=== PATIENT | male | born 1965 | race Caucasian/White ===

== ENCOUNTER 2018-12-28 12:46 | Inpatient (IN) | payer BC ==
[~2018-12-28] VITALS: Ht 180.3 cm; Wt 117.9 kg
[2018-12-28 12:48] VITALS: BP 172/100
[2018-12-28 13:58] LABS: BASOPHILS 0.5 % (0.0-2.0); HEMATOCRIT 39.3 % (42.0-52.0); HEMOGLOBIN 13.4 gm/dL (14.0-18.0); LYMPHOCYTES 17.2 % (24.0-44.0); MCH 28.5 pg (26.0-34.0); MCHC 34.2 g/dL (28.0-37.0); MCV 83.5 fL (80.0-100.0); MONOCYTES 7.9 % (1.0-8.0); PLATELET COUNT 245 thou/uL (150-400); POLYS 74.4 % (36.0-66.0); RDW 13.3 % (10.5-14.5)
[2018-12-28 14:15] LABS: CALCIUM 9.3 mg/dL (8.5-10.1); CREATININE 1.1 mg/dL (0.7-1.3); MAGNESIUM 2.1 mg/dL (1.8-2.4); POTASSIUM 3.3 mmol/L (3.5-5.1)
[2018-12-28 15:33] LABS: URINE BILIRUBIN NEGATIVE (Negative); URINE BLOOD TRACE (Negative); URINE CLARITY CLEAR; URINE COLOR YELLOW; URINE GLUCOSE-RANDOM* 3+ (Negative); URINE KETONES NEGATIVE (Negative); URINE LEUKOCYTES-REFLEX NEGATIVE (Negative); URINE NITRITE-REFLEX NEGATIVE (Negative); URINE PROTEIN (DIPSTICK) NEGATIVE (Negative); URINE SPECIFIC GRAVITY <= 1.005 (1.005-1.035); URINE UROBILINOGEN 0.2 E.U./dl (0.2-1.0)
[2018-12-28 15:40] LABS: AMP/METHAMP Negative (Negative); BARBITURATES Negative (Negative); BENZODIAZEPINES Negative (Negative); COCAINE Negative (Negative); METHADONE Negative (Negative); OPIATES Negative (Negative); PCP Negative (Negative)
[2018-12-28 17:25] VITALS: BP 140/84
[2018-12-28 17:32] VITALS: BP 130/70
[2018-12-28 18:05] LABS: CHOLESTEROL 168 mg/dL (<200); HDL CHOLESTEROL 38 mg/dL (>40); LDL CHOLESTEROL 122 mg/dL (<100); SERUM ASSESSMENT Clear; TC:HDL 4.4 Ratio (Not establshd); TRIGLYCERIDE 44 mg/dL (<150); VLDL 9 mg/dL (<40)
[2018-12-28 18:38] VITALS: BP 167/89
--- NOTE | 2018-12-28 19:36 | NUR ---
PT ADMITTED FROM ER. REPORTS HE STARTED HAVING STIFFNESS IN HIS FINGER, HEAD PRESSURE, AND CHEST PAIN TODAY. STATES "GOD TOLD ME TO COME TO ER". REPORTS PAIN IS UNCHANGED SINCE TODAY ADMIT -11/09. HE STATES HE TAKES MEDICATIONS AT HOME BUT IS UNSURE WHAT MEDS BUT WILL HAVE HIS BRING HIS MEDICATIONS BOTTLES HERE LATER TONIGHT. CARE PLAN INITIATED. REPORT GIVEN TO BOARD WINDER RN.
[2018-12-28 20:15] VITALS: BP 170/81
[2018-12-28 20:28] VITALS: BP 142/72
[2018-12-29 00:06] VITALS: BP 156/88
--- NOTE | 2018-12-29 03:55 | NUR ---
ASSUMED PT'S CARE AT 1930; PT. SITTING ON CHAIR; C/O CP; 11/09; REFUSED PAIN MEDICATION; DURING ASSESSMENT C/O CP; STILL 11/09; BURNING; REFUSED PAIN MEDICATION; SBP BELLOW 160; EDUCATED ABOUT SCD'S; REFUSED EARLY ON THE NIGHT & MIDNIGHT; ABLE TO REST THROUGH THE NIGHT WITH EYES CLOSE; ASSESSMENT CHARGED; FOLLOWING POC; TROPONIN TRENDING DOWN; CHECK CHART; MONITORING; WILL PASS ON REPORT.
[2018-12-29 04:45] VITALS: BP 117/75
[2018-12-29 06:28] LABS: ANION GAP 10 mmol/L (7-16); BUN 5 mg/dL (7-18); CALCIUM 8.5 mg/dL (8.5-10.1); CHLORIDE 106 mmol/L (98-107); CO2 25 mmol/L (21-32); CREATININE 0.9 mg/dL (0.7-1.3); GLUCOSE 150 mg/dL (74-106); MAGNESIUM 1.8 mg/dL (1.8-2.4); POTASSIUM 3.7 mmol/L (3.5-5.1); SODIUM 141 mmol/L (136-145); TROPONIN-I <0.06 ng/mL (<0.06)
[2018-12-29 07:31] VITALS: BP 138/83
[2018-12-29 09:06] LABS: GLYCOHEMOGLOBIN (HGB A1C) 7.4 % (4.8-5.6)
[2018-12-29 13:25] VITALS: BP 138/83
[2018-12-29] MEDS ORDERED: NORCO 5-325 TA1 EAC1 PO (18:36)
--- NOTE | 2018-12-31 07:50 | EKG ---
[address] [place] [address] ELECTROCARDIOGRAM REPORT Name: MARCIO ZULUAGA Room #: 218-P DIS IN M.R.#: [id number] ������������������ Admission: 12/28/18 ������������������ Attend Phys: Hao Hayes MD Discharge: 12/29/18 ������������������ Date of : 65 Report #: [id number] ����������������������������������������������������������������� [id number] THIS REPORT FOR: //name// [facility] ED Test Date: 2018-12-28 Test Time: 12:58:25 Pat Name: MARCIO ZULUAGA Department: Room: 201 Gender: M Interventional Radiologist: [place] : 1965 Requested By: Rancho Henriquez Order Number: [id number] MD: Biju Cordero Measurements Intervals [place] Rate: 80 P: 37 MD: 168 QRS: -21 QRSD: 87 T: 74 QT: 382 QTc: 441 Interpretive Statements Sinus rhythm Nonspecific T wave abnormality No previous ECG available for comparison Electronically Signed On 12-31-2018 7:49:50 CDT by Biju Cordero [email or web address] ��������������������������������������������� <ELECTRONICALLY SIGNED> ���������������������������������������� By: Biju Cordero MD, [facility] ��������������������������������������������� 12/31/18 0749 1258 1258 Biju Cordero MD, FACC /EPI
== END 2018-12-29 14:48 | disposition home or self-care (01) | DRG 305 ==
LOC: ER 12:46 → EROBS 17:03 → 2N 17:31
PROVIDERS: Nurse Practitioner; Physician Assistant; ADMIT Internal Medicine
DX: I16.0 Hypertensive urgency (principal); H91.93 Unspecified hearing loss, bilateral; R07.9 Chest pain, unspecified; R79.89 Other specified abnormal findings of blood chemistry; F41.9 Anxiety disorder, unspecified; E87.6 Hypokalemia; F41.0 Panic disorder [episodic paroxysmal anxiety]; E66.01 Morbid (severe) obesity due to excess calories; E11.65 Type 2 diabetes mellitus with hyperglycemia; Z68.36 Body mass index [BMI] 36.0-36.9, adult; E78.5 Hyperlipidemia, unspecified
CPT/HCPCS: 10081

== ENCOUNTER 2018-12-29 17:06 | Emergency (ER) | payer BC ==
[~2018-12-29] VITALS: Ht 180.3 cm; Wt 117.9 kg
[2018-12-29 18:12] LABS: HEMATOCRIT 39.9 % (42.0-52.0); HEMOGLOBIN 13.6 gm/dL (14.0-18.0); MCH 28.7 pg (26.0-34.0); MCV 84.4 fL (80.0-100.0); RBC 4.73 mil/uL (4.50-6.00); RDW 13.4 % (10.5-14.5); WBC 7.1 thou/uL (4.0-11.0)
[2018-12-29 18:22] LABS: CALCIUM 9.3 mg/dL (8.5-10.1); POTASSIUM 3.5 mmol/L (3.5-5.1)
[2018-12-29 18:31] LABS: TROPONIN-I 0.06 ng/mL (<0.06)
[2018-12-29] MEDS ORDERED: NORCO 5-325 TA1 EAC1 PO (18:36)
[2018-12-29 18:50] VITALS: BP 137/85
--- NOTE | 2018-12-31 08:09 | EKG ---
[address] [place] [address] ELECTROCARDIOGRAM REPORT Name: MARCIO ZULUAGA Room #: DEP JULIA Bledsoe#: [id number] ������������������ Admission: 12/29/18 ������������������ Attend Phys: Discharge: 12/29/18 ������������������ Date of : 65 Report #: [id number] ����������������������������������������������������������������� [id number] THIS REPORT FOR: //name// [facility] ED Test Date: 2018-12-29 Test Time: 17:09:59 Pat Name: MARCIO ZULUAGA Department: Room: Gender: Canvass Manager: HANY : 1965 Requested By: Daiana Murphy Order Number: [id number] MD: Chapo Card Measurements Intervals [place] Rate: 79 P: 50 MS: 158 QRS: -37 QRSD: 86 T: 75 QT: 393 QTc: 451 Interpretive Statements Sinus rhythm Left axis deviation Baseline wander in lead(s) V1,V2,V4 No previous ECG available for comparison Electronically Signed On 12-31-2018 8:09:40 CDT by Chapo Card [email or web address] ��������������������������������������������� <ELECTRONICALLY SIGNED> ���������������������������������������� By: Chapo Card MD ��������������������������������������������� 12/31/18 0809 1709 1709 Chapo Card MD /LOREN
== END 2018-12-29 18:50 | disposition home or self-care (01) ==
LOC: ER 17:06
PROVIDERS: Emergency Medicine
DX: R07.89 Other chest pain (principal); R51 Headache; F41.9 Anxiety disorder, unspecified; M19.90 Unspecified osteoarthritis, unspecified site; I10 Essential (primary) hypertension; E11.9 Type 2 diabetes mellitus without complications; E78.5 Hyperlipidemia, unspecified